=== PATIENT | female | born 1955 | race Hispanic/Latino ===

== ENCOUNTER 2020-04-08 10:07 | Day surgery (SDC) | payer OTHER ==
[~2020-04-08 10:07] MED LIST: LACTATED RINGERS 1,000 ML IV SCH
[2020-04-08] MEDS ORDERED: ceFAZolin/STERILE WATER 2 GM/20 ML SYRINGE IV NR (11:00)
--- NOTE | 2020-04-08 11:08 | Anesthesia Consultation ---
Anesthesia Consult and Med Hx Date of service: 04/08/20 - Airway Anesthetic Teeth Evaluation: Poor, Partials (upper and lower) ROM Head & Neck: Adequate Mental/Hyoid Distance: Adequate Mallampati Class: Class III Intubation Access Assessment: Possibly Difficult - Pulmonary Exam CTA: Yes - Cardiac Exam Cardiac Exam: RRR - Pre-Operative Health Status ASA Pre-Surgery Classification: ASA3 Proposed Anesthetic Plan: General - Pulmonary Hx Smoking: Yes Hx Respiratory Symptoms: No COPD: Yes (last albuterol use >6 months ago) Home Oxygen Therapy: No Hx Sleep Apnea: No (CHERYL PRE SCREEN HIGH RISK) - Cardiovascular System Hx Hypertension: Yes Hx Heart Attack/AMI: No Hx Percutaneous Transluminal Coronary Angioplasty (PTCA): No Hx Cardia Arrhythmia: No - Central Nervous System CVA: No - Gastrointestinal Hx Gastroesophageal Reflux Disease: No - Endocrine Hx Renal Disease: No (s/p nephrectomy for RCC) Hx Liver Disease: No Hx Insulin Dependent Diabetes: No Hx Non-Insulin Dependent Diabetes: No Hx Thyroid Disease: No - Other Systems Hx Alcohol Use: Yes (RARELY) Hx Cancer: Yes (hx RCC s/p nephrectomy) Hx Obesity: No - Additional Comments Anesthesia Medical History Comments: No hx anesthetic complications.
[2020-04-08] MEDS ORDERED: fentaNYL 100 MCG/2 ML INJ IV PRN (11:09)
--- NOTE | 2020-04-08 11:09 | Anesthesia Day of Surgery ---
Anesthesia Day of Surgery - Day of Surgery Patient Examined: Yes Patient H&P Reviewed: Yes Patient is NPO: Yes
[2020-04-08] MEDS ORDERED: ONDANSETRON 4 MG/2 ML INJ ONE (11:12)
[2020-04-08] MEDS ORDERED: PHENYLEPHRINE/NS 1,000 MCG/10 ML SYRINGE (OR USE) IV ONE (11:12)
[2020-04-08] MEDS ORDERED: fentaNYL 100 MCG/2 ML INJ ONE (11:12)
[2020-04-08] MEDS ORDERED: LIDOCAINE MPF (2%) 20 MG/1 ML VIAL 5 ML ONE (11:12)
[2020-04-08] MEDS ORDERED: dexAMETHasone 20 MG/5 ML VIAL ONE (11:12)
[2020-04-08] MEDS ORDERED: propofoL 200 MG/20 ML VIAL IV ONE (11:12)
[2020-04-08] MEDS ORDERED: WATER FOR IRRIG STERILE 2000 ML IR ONE (11:22)
[2020-04-08] MEDS ORDERED: MANNITOL/SORBITOL SOLUTION 3,000 ML IRRIG.SOLN IR ONE (11:22)
[2020-04-08] MEDS ORDERED: WATER FOR IRRIG STERILE 1,500 ML BOTTLE IR ONE (11:22)
--- NOTE | 2020-04-08 12:33 | Operative Report ---
PREOPERATIVE DIAGNOSES: Positive cytology, history of transitional cell carcinoma, previous right nephrectomy. POSTOPERATIVE DIAGNOSES: Positive cytology, history of transitional cell carcinoma, previous right nephrectomy with a broad-based tumor on the right lateral wall. PROCEDURES: Cystoscopy, biopsies right retrograde, transurethral resection of bladder tumor approximately 2 cm. SURGEON: Dr. Ferreira. ANESTHESIA: General. FINDINGS: This is a woman with positive cytology. She had a CT, which did not show much thickened bladder wall, previous right nephrectomy, she now presents for treatment. DESCRIPTION OF PROCEDURE: The patient was brought to the operating room and placed on the operating table. Following induction of anesthesia, placed in lithotomy position, prepped and draped in the usual sterile fashion. Cystourethroscopy showed this tumor in right lateral wall. There was slight erythema in posterior wall. Biopsies were taken there. 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 The calices were preserved. At this point, a 24 resectoscope was inserted and the tumor was resected. It was right lateral wall right over the obturator nerve and there was an occasional obturator reflex, so we had to be careful. We did not want to have a big perforation. The patient tolerated the procedure well. We resected down the capsular fibers. Specimens were sent deeper and bladder tumor. No significant bleeding. Area was cauterized, brought to recovery room with a two-way catheter in stable condition. PLAN: Will be check pathology followup likely intravesical therapy, pending final pathology. JOB# [id number] KAMI/CARINA
--- NOTE | 2020-04-08 13:54 | Post Operative Note ---
Date of procedure: 04/15/20 Pre-op diagnosis: + fish TCC Post-op diagnosis: same Findings: bladder tumor Procedure: cysto l rpg turbt Anesthesia: GETA Surgeon: FABIENNE QUIROGA Estimated blood loss: minimal Pathology: list (bladder) Specimen disposition: to lab Condition: stable Disposition: PACU
--- NOTE | 2020-04-08 13:55 | Discharge Summary ---
Short Stay Discharge Plan Activity: other (no straining ) Weight Bearing Status: Full Weight Bearing Diet: low cholesterol, low salt Special Instructions: other (inc fluids ) Durable Medical Equipment Needed Upon Discharge: other (home with duran ) Additional Instructions: Follow up with Dr Ferreira for catheter removal in 7 days. Follow up with: PRIMARY CARE, [Primary Care Provider] - 7 Days FABIENNE FERREIRA MD [Staff Physician] - 7 Days Forms: Outpatient [facility] Inst.
[2020-04-08 14:26] VITALS: BP 124/64
--- NOTE | 2020-04-08 14:34 | Post Anesthesia Evaluation ---
- Post Anesthesia Evaluation Patient Participated: Yes Airway Patent: Yes Stable Respiratory Function: Yes Nausea/Vomiting: No Temp > 96.8F: Yes Pain Manageable: Yes Adequeate Hydration: Yes Anesthesia Complications: No
--- NOTE | 2020-04-08 15:49 | Fluoroscopy Report ---
FLUOROSCOPY RETROGRADE UROGRAPHY HISTORY: FINDINGS: Fluoroscopy was provided by radiology during retrograde urography by the urologist. Only im ages of the left collecting system are presented which demonstrate no evidence for stone or other arsen ling defect. The left kidney appears anteriorly rotated on the images. Bladder biopsy was also perfor med, correlate with the procedural report by urology. IMPRESSION: Unremarkable left retrograde pyelograms Fluoroscopy time: 16 seconds Fluoroscopic images: 4 Signer Name: Thomas Gaspar Jr, MD Signed: 04/08/2020 3:45 PM Workstation Name: [id number]
== END 2020-04-08 10:08 | disposition home or self-care (01) ==
LOC: OR 10:07
PROVIDERS: ATTEND Urology
DX: C67.2 Malignant neoplasm of lateral wall of bladder (principal); C67.4 Malignant neoplasm of posterior wall of bladder; R31.0 Gross hematuria; E78.00 Pure hypercholesterolemia, unspecified; I10 Essential (primary) hypertension; J43.9 Emphysema, unspecified; K21.9 Gastro-esophageal reflux disease without esophagitis; M19.90 Unspecified osteoarthritis, unspecified site; F17.210 Nicotine dependence, cigarettes, uncomplicated; Z72.89 Other problems related to lifestyle; Z98.890 Other specified postprocedural states; Z90.5 Acquired absence of kidney; Z79.899 Other long term (current) drug therapy; Z90.710 Acquired absence of both cervix and uterus; Z98.891 History of uterine scar from previous surgery; Z87.440 Personal history of urinary (tract) infections; Z88.8 Allergy status to other drugs, medicaments and biological substances
CPT/HCPCS: 52204; 52234; 74420; 88112; 88305; C1758; C1769; J0690; J1100; J2370; J2405; J2704; J3010; J7120; Q9967; 88307; A4217